=== PATIENT | female | born 1955 | race Caucasian/White ===

== ENCOUNTER 2020-08-11 16:32 | Outpatient (CLI) | payer MEDICARE ==
[2020-08-12 15:10] LABS: SARS-CoV-2 PCR by NAA Not Detected (NotDetected)
== END 2020-08-11 16:33 | disposition home or self-care (01) ==
LOC: LABBT 16:32
PROVIDERS: ATTEND Ophthalmology Retina Specialist
DX: Z01.812 Encounter for preprocedural laboratory examination (principal); H35.341 Macular cyst, hole, or pseudohole, right eye; Z20.822 Contact with and (suspected) exposure to COVID-19
CPT/HCPCS: U0003; U0005

== ENCOUNTER 2020-08-17 07:07 | Day surgery (SDC) | payer MEDICARE ==
[2020-08-16 14:25] VITALS: BMI 22.9
[2020-08-17] MEDS ORDERED: EPINEPHrine 0.3 MG in Ophthalmic Irrigation Solution 500 ML IRR SCH (07:30)
[2020-08-17] MEDS ORDERED: Phenylephrine 2.5% Ophth Soln 5 ML BOT ONE (07:32)
[2020-08-17] MEDS ORDERED: Cyclopentolate 1% Opth Drop 2 ML BOT ONE (07:32)
[2020-08-17] MEDS ORDERED: Fentanyl 100 MCG/2 ML VIAL ONE (07:56)
[2020-08-17] MEDS ORDERED: Midazolam HCl 2 mg/2 ml Vial ONE (07:56)
[2020-08-17] MEDS ORDERED: PROPOFOL 20 ML ONE (07:56)
[2020-08-17] MEDS ORDERED: Triamcinolone 40 MG/ML VIAL ONE (09:05)
[2020-08-17] MEDS ORDERED: Lidocaine 1% PF 5 ML VIAL ONE (09:05)
[2020-08-17] MEDS ORDERED: Lidocaine 4% PF 5 ML AMP ONE (09:05)
[2020-08-17] MEDS ORDERED: Indocyanine Green 25 MG/10 ML VIAL ONE (09:05)
[2020-08-17] MEDS ORDERED: Bupivacaine PF 0.75% SDV 10 ML ONE (09:05)
[2020-08-17] MEDS ORDERED: Maxitrol 0.1% Opth Oint 3.5 GM TUBE ONE (09:05)
== END 2020-08-17 11:10 | disposition home or self-care (01) ==
LOC: SDC 07:07
PROVIDERS: ATTEND Ophthalmology Retina Specialist
PROC: 08T43ZZ Resection of Right Vitreous, Percutaneous Approach (ICD-10-PCS; principal; 2020-08-17)
PROC: 08NE3ZZ Release Right Retina, Percutaneous Approach (ICD-10-PCS; 2020-08-17)
DX: H35.341 Macular cyst, hole, or pseudohole, right eye (principal); I35.0 Nonrheumatic aortic (valve) stenosis; D53.9 Nutritional anemia, unspecified; E03.9 Hypothyroidism, unspecified; Z79.899 Other long term (current) drug therapy; Z88.0 Allergy status to penicillin; Z88.5 Allergy status to narcotic agent; Z91.040 Latex allergy status
CPT/HCPCS: 67025; J0171; J2250; J2704; J3010; J3301; J3490